=== PATIENT | male | born 2000 | race Caucasian/White ===

== ENCOUNTER 2021-02-18 22:22 | Emergency (ER) | payer OTHER, SELFPAY ==
[2021-02-18 22:23] VITALS: BP 119/72; PULSE 127; RESP 16; TEMP 38.7; O2SAT 100; BMI 16.9
[2021-02-18 23:33] VITALS: BP 115/65; PULSE 114; RESP 18; O2SAT 97
--- NOTE | 2021-02-19 00:15 | EDS_ITS ---
HPI History of Present Illness Chief Complaint: General Illness Informant: patient Onset/Context/Timing Onset: Today and Hours Timing: Continuous Current Severity: Mild Maximum Severity: Mild Narrative Narrative: 20-year-old male no seen past medical history. Currently on no medications. States he had a fever of 101 several hours ago today. He is a [employer] student. Had a negative Covid negative influenza test. Has had nausea and vomiting x1 no diarrhea no shortness of breath. No abdominal pain. No dysuria. Prior similar symptoms: Yes Recent Illness/Hospitalization: No PFSH PFSH Medical History Non-smoker Home Medications NK 02/18/21 [History Last Taken Unknown] Allergy/AdvReac Type Severity Reaction Status Date / Time No Known Allergies Allergy Verified 02/18/21 22:25 Social History Smoking Status: Never smoker ROS ROS ED ROS Narrative Fever, nausea and vomiting and cough. Review of Systems ROS Unobtainable: Denies due to encephalopathy Constitutional Constitutional ED: Reports chills and fever(s) Eyes Eyes: Denies change in vision ENT ENT ED: Denies ear pain or sore throat Cardiovascular Cardiovascular: Denies chest pain Respiratory/Chest Respiratory/Chest: Reports cough; Denies dyspnea Gastrointestinal Gastrointestinal: Reports nausea and vomiting; Denies abdominal pain or diarrhea Genitourinary Genitourinary ED: Denies dysuria or hematuria Musculoskeletal Musculoskeletal: Denies myalgias Integumentary Denies rash Neurologic Neurologic: Denies headache(s) Psychiatric Psychiatric: Denies depression Endocrine Endocrinology: Denies polyuria Allergic/Immunologic Allergic/Immunologic ED: Denies urticaria EXAM Physical Exam Narrative Exam Narrative: 20-year-old male no acute distress vital signs stable afebrile. Pulse ox 9% on room air. HEENT exam normal. Neck nontender no lymphadenopathy. Lungs clear to auscultation bilaterally. Heart regular rhythm rate about 110 no murmur. Abdomen soft nontender. Moving all 4 extremities. No edema nontender. Back nontender. Skin no rashes. Neurologic exam normal. Const Vital Signs: 02/18/21 22:23 02/18/21 23:33 Temperature 101.6 F H Temperature Source Temporal Pulse Rate 127 H 114 H Respiratory Rate 16 18 Respiratory Effort Normal Respiratory Pattern Normal Blood Pressure 119/72 115/65 Blood Pressure Mean 87 81 Pulse Ox 100 97 Oxygen Delivery Method Room Air Room Air Positive well nourished and well developed General Appearance ED: well developed and NAD HEENT Reports moist mucous membranes Negative for trauma or tenderness Eyes PERRL and EOMs intact bilaterally Neck no lymphadenopathy, supple and no JVD General: Negative for tenderness Chest Wall inspection of chest normal and palpation of chest normal Resp normal respiratory effort and clear to auscultation bilaterally Auscultation: Negative for rales, rhonchi or wheezes Cardio regular rhythm, S1 normal heart sound, S2 normal heart sound and no murmurs Rate: tachycardic GI normal to inspection, nondistended, normoactive bowel sounds, non-tender, non- distended and no masses Inspection: Negative for abdominal distention Auscultation: normoactive bowel sounds Palpation: soft; Negative for tender, guarding or rebound tenderness present Back/Spine no CVA tenderness General Back: Negative for CVA tenderness Extremity normal to inspection General Extremety ED: Negative for edema or tenderness General Extremity: Negative for edema Neuro oriented x3 and CN's II-XII intact bilaterally Sensorium / Orientation: alert; Negative for lethargic or stuporous Motor Exam: strength 5/5 throughout Psych mental status grossly normal Mood & Affect: Negative for depressed or tearful Skin no rashes or lesions noted and no wounds MDM MDM MDM Narrative Medical decision making narrative: 1-year-old male clinically does not look ill. He is a viral URI rule out Covid. Covid test pending. Lab Data Attestation: I reviewed the patient's lab results. Discharge Plan Triage Chief Complaint: General Illness ED Provider: Trino Javier Dx/Rx/DC Orders Clinical Impression: Acute viral syndrome Prescriptions: No Action NK RF: 0 Primary Care Provider: Ela Andrea,Out of Referrals: Georges Worley MD [NON-STAFF] - 1 Week if not improving Ela Doctor,Out of [Primary Care Provider] - Activity Restrictions/Additional Instructions: Most likely of viral syndrome. Covid test may be negative several times before becomes positive. Plenty of fluids and rest Tylenol and Motrin for fever Follow-up if not improving. Quarantine. Disposition Disposition: Home, Self Care
[2021-02-19 00:49] VITALS: O2SAT 93
== END 2021-02-19 00:50 | disposition home or self-care (01) ==
PROVIDERS: Emergency Provider Emergency Medicine
DX: B34.9 Viral infection, unspecified (principal)
CPT/HCPCS: 87426; 99282

== ENCOUNTER → 2021-06-03 08:09 | Outpatient (CLI) | payer OTHER, SELFPAY | PROVIDERS: Visit Provider Family Medicine | DX: Z23 Encounter for immunization (principal) ==